=== PATIENT | male | born 1960 | race African-American/Black ===

== ENCOUNTER 2017-02-04 19:31 | Inpatient (IN) ==
[~2017-02-04 19:31] MED LIST: INSULIN NPH/REGULAR 70/30 100 UNIT/ML SUBCUT SCH
[2017-02-04] MEDS ORDERED: SODIUM CHLORIDE 0.9% 2,000 ML IV STA (20:27)
[2017-02-04] MEDS ORDERED: INSULIN REGULAR 100 UNIT/ML IV STA (20:27)
[2017-02-04] MEDS ORDERED: METOCLOPRAMIDE 10 MG/2 ML VIAL IV STA (20:27)
[2017-02-04] MEDS ORDERED: ONDANSETRON 4 MG/2 ML VIAL IV STA (20:27)
[2017-02-04] MEDS ORDERED: METOCLOPRAMIDE 10 MG/2 ML VIAL ONE (20:48)
[2017-02-04] MEDS ORDERED: ONDANSETRON 4 MG/2 ML VIAL ONE (20:48)
[2017-02-04] MEDS ORDERED: INSULIN REGULAR 100 UNIT/ML ONE (20:50)
[2017-02-04 20:53] LABS: Basophils % 0.3 % (0.0-0.8); Hematocrit 32.3 VOL% (42.0-52.0); Hemoglobin 11.9 GM/DL (14.0-18.0); Immature Granulocytes % 0.5 %; Lymphocytes # 0.4 10*3/uL (1.4-4.0); Lymphocytes % 7.2 % (21.2-54.2); Mean Corpuscular HGB Conc 36.8 GM/DL (32-36); Mean Corpuscular Hemoglobin 33 PG (27-34); Mean Corpuscular Volume 89.5 FL (87-102); Monocytes # 0.3 10*3/uL (0.11-0.8); Monocytes % 4.5 % (1.7-12.7); Neutrophils % 87.5 % (38.7-73.9); Platelet Count 133 T/CUMM (130-400); Red Blood Count 3.61 MC/CUMM (3.8-5.5); Red Cell Distribution Width 12.6 % (9.3-17.3); White Blood Count 5.7 T/CUMM (4-12)
[2017-02-04 20:54] LABS: Immature Granulocytes Absolute 0.03 #
[2017-02-04 21:19] LABS: Alanine Aminotransferase 23 U/L (16-61); Albumin 3.5 G/DL (3.4-5.0); Alkaline Phosphatase 95 U/L (45-117); Amylase 56 U/L (25-115); Aspartate Amino Transferase 11 U/L (0-37); Blood Urea Nitrogen 49 MG/DL (7-18); Osmolality,Calculated 298.2 MOS/KG (273-304); Potassium 4.8 MMOL/L (3.5-5.1); Sodium 127 MMOL/L (136-145); Total Protein 8.1 G/DL (6.4-8.3); Troponin I Only < 0.015 NG/ML (0.00-0.045)
[2017-02-04 21:21] LABS: Glucose 651 MG/DL (74-106)
[2017-02-04] MEDS ORDERED: hydrALAZINE 20 MG/1 ML VIAL IV STA (21:48)
[2017-02-04] MEDS ORDERED: hydrALAZINE 20 MG/1 ML VIAL ONE (21:48)
[2017-02-04 22:08] LABS: Apearance,Urine CLEAR (Clear); Bacteria,Urine Occasional /HPF (Few); Bilirubin,Urine Negative (Negative); Blood, Urine Negative (Negative); Glucose,Urine (UA) >=500 mg/dL (Negative); Ketones,Urine 5 mg/dL (Negative); Nitrite,Urine Negative (Negative); Protein,Urine 100 MG/DL; Urine Color Straw (Yellow); Urine Specific Gravity 1.021 (1.001-1.035); Urine Urobilinogen < 2.0 EU/DL (0.2-1.0)
[2017-02-04] MEDS ORDERED: DEXTROSE 50% 25 GM/50 ML VIAL IV PRN (22:59)
[2017-02-04] MEDS ORDERED: GLUCAGON 1 MG VIAL IM PRN (22:59)
[2017-02-04] MEDS ORDERED: ATORVASTATIN 10 MG TABLET PO SCH (23:00)
[2017-02-04] MEDS ORDERED: INSULIN NPH/REGULAR 70/30 100 UNIT/ML SUBCUT STA (23:05)
[2017-02-04 23:45] LABS: Creatinine,Urine Random 43 MG/DL; Urea Nitrogen, Urine Random 336 MG/DL
[2017-02-05] MEDS: METOPROLOL TARTRATE 50 MG TABLET PO SCH ×2 (00:56→08:45)
[2017-02-05] MEDS: HEPARIN 5,000 UNIT/1 ML VIAL SUBCUT SCH ×2 (00:56→10:44)
[2017-02-05] MEDS ORDERED: PNEUMOCOCCAL VACCINE (13 VALENT) 0.5 ML SYRINGE IM ONE (01:22)
[2017-02-05] MEDS ORDERED: INFLUENZA VIRUS VACCINE 0.5 ML SYRINGE IM ONE (01:22)
[2017-02-05] MEDS: INSULIN REGULAR 100 UNIT/ML SUBCUT SCH ×4 (01:55→17:39)
[2017-02-05] MEDS ORDERED: INSULIN REGULAR 100 UNIT/ML SUBCUT ONE (03:54)
[2017-02-05] MEDS ORDERED: INSULIN NPH/REGULAR 70/30 100 UNIT/ML SUBCUT SCH (07:30)
[2017-02-05] MEDS ORDERED: SPIRONOLACTONE 25 MG TABLET PO SCH (09:00)
[2017-02-05] MEDS ORDERED: INSULIN GLARGINE 100 UNIT/ML SUBCUT SCH (09:00)
[2017-02-05] MEDS ORDERED: INSULIN DETEMIR 53 UNIT SUBCUT SCH (09:00)
[2017-02-05] MEDS ORDERED: CHOLECALCIFEROL 1,000 UNIT TABLET PO SCH (09:00)
[2017-02-05] MEDS ORDERED: CALCITRIOL 0.5 MCG CAPSULE PO SCH (09:00)
[2017-02-05] MEDS ORDERED: FUROSEMIDE 40 MG TABLET PO SCH (09:00)
[2017-02-05] MEDS ORDERED: amLODIPine 10 MG TABLET PO SCH (09:00)
[2017-02-05 17:27] VITALS: BP 145/52
== END 2017-02-05 18:46 | disposition home health service (06) | DRG 639 ==
LOC: N.ED 19:31 → N.EDINP 23:08 → N.5E 23:33
PROVIDERS: ADMIT Internal Medicine Geriatric Medicine; ATTEND Internal Medicine Geriatric Medicine